=== PATIENT | female | born 1980 | race Caucasian/White ===

== ENCOUNTER 2024-08-21 09:06 | Emergency (ER) | payer BC, SELFPAY ==
[2024-08-21 09:10] VITALS: BP 138/90
[2024-08-21 09:20] VITALS: BMI 33.6
--- NOTE | 2024-08-21 09:31 | ED.GENMED ---
History of Present Illness
General
Chief Complaint: Rabies
Source: patient
Exam Limitations: none
Time Seen by Provider: 08/21/24 09:16
Nursing documentation reviewed up to this point in time: agreed with
History of Present Illness
History of Present Illness:
Patient is a 44 year old female presenting for evaluation of cat bite. 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 There was very minimal bleeding. She contacted her primary care
doctor who recommended she come to the emergency department for the rabies vaccine. Patient denies any significant pain in affected finger. She denies any numbness/tingling in affected finger. She was able to wash out bite with water prior to
arrival to the emergency department
Of note�patient states she did have a cat bite 2 years ago, in 2021, where she received the rabies immunoglobulin and the full 4 dose vaccination series. Her tetanus shot was updated at that time as well.
Past History
Past History
ED Past Medical History: None and Other (N/A)
ED Past Surgical History: None and Other (N/A)
Social History
Tobacco: Non-smoker
Personal:
Living: with family
Review of Systems
Review of Systems
Allergies reviewed?: Yes
All Other Systems: ROS reviewed and negative except as documented in HPI and ROS
Phy Exam
Physical Exam
Physical Exam:
Vitals: Patient's vital signs are stable. Afebrile
General: Patient is well appearing, no acute distress
Skin: 2 pinpoint puncture wounds on right second digit at lateral aspect of the PIP joint. No active bleeding.
Head: Normocephalic, atraumatic
Throat: Protecting airway
Neck: Normal ROM, no cervical spine tenderness
Cardiac: Regular rate
Pulm: No apparent respiratory distress
Abdomen: Nondistended
Extremities: 2 pinpoint puncture wounds to right second digit as described above. No bony tenderness in right second finger. Patient has full ability to flex and extend against resistance in right MCP, PIP, DIP joints. Sensation fully intact.
Capillary refill less than 2 seconds.
Neuro: Grossly intact
Psychiatric: Normal affect.
Course
Orders/Labs/Results
Orders:
Orders
08/21/24 09:34
MetroNIDAZOLE [Flagyl] 500 mg PO NOW STA
08/21/24 09:45
Rabies Vaccine (Pcec)/Pf [Rabavert Rabies Vacc W-Diluent] 2.5 unit IM .ONCE ONE
08/21/24 09:55
Cefuroxime Axetil [Ceftin] 500 mg PO NOW STA
Vital Signs
Initial and Last Documented VS:
Initial Vital Signs
Temp Pulse Resp BP Pulse Ox
98.2 F 80 18 138/90 100
08/21/24 09:10 08/21/24 09:10 08/21/24 09:10 08/21/24 09:10 08/21/24 09:10
Last Documented Vital Signs
Temp Pulse Resp BP Pulse Ox
98.2 F 80 18 138/90 100
08/21/24 09:10 08/21/24 09:10 08/21/24 09:10 08/21/24 09:10 08/21/24 09:10
MDM/Problems Addressed
Differential Diagnosis Includes:
Not limited to: Cat bite, etc.
MDM/Problems Addressed:
44-year-old female presenting after cat bite by feral cat while working at nursing home today. Wound is not actively bleeding. Patient is stable vital signs. She is afebrile. On exam�patient is well-appearing, no apparent distress. She does have a
pinpoint puncture wounds to her right index finger at lateral aspect of PIP joint. There is no bony tenderness. No evidence of tendon involvement. No evidence of flexor tenosynovitis. Sensation fully intact. Puncture wounds were irrigated
thoroughly with normal saline. Tetanus shot is up-to-date. Patient did have a complete rabies vaccination series including immunoglobulin 2 years ago. She will require rabies booster today given this cat Was likely unvaccinated. Patient received
first rabies vaccination today. She will require repeat vaccination in 2 days and was instructed to return to the emergency department. Will start patient on prophylactic course of Ceftin/Flagyl given amoxicillin allergy. Strict return
precautions discussed with patient including signs of infection. Case discussed with attending physician. Patient stable for discharge.
Chronic conditions affecting care:
N/A
Acute Exacerbation and/or Progression of Chronic Illness:
N/A
*Pulse Oximetry
Patient hypoxic: no
*EKG
Interpreted by ED Provider?: NA
*Block Sawyer Interpretation
Rate: Block Sawyer- N/A
*Critical Care Note
Total Time (30-74mins, 75-104mins- exclusive of procedures): Not Applicable
ED Attending Note
-
Portions of this chart may have been created with voice recognition software.� Occasional wrong word or��sound alike� substitutions may have occurred due to the inherent limitations of voice recognition software.
Discharge Plan
Departure
Patient Disposition: Home (Routine Discharge)
Date of Disposition: 08/21/24
Time of Disposition: 09:57
Patient with high blood pressure during this ER visit?: No
Condition: Good
Covid-19: Not Applicable
Discharge Problem:
Cat bite of index finger, Rabies, need for prophylactic vaccination against
Instructions: Animal Bites (DC), Rabies
Prescriptions:
New
cefuroxime axetil 500 mg tablet
500 mg PO BID 5 Days Qty: 10 0RF
metronidazole 500 mg tablet
500 mg PO TID 5 Days Qty: 15 0RF
No Action
desogestrel-ethinyl estradiol [Isibloom] 1 EACH tablet
1 ea PO DAILY
escitalopram oxalate 10 MG tablet
20 mg PO DAILY
Imovax Rabies Vaccine (PF) 1 ML recon soln
1 ml IM . NEEDED
Referrals:
Aileen Machuca MD [Family Provider] -
Stand Alone Forms: Rabies Vaccine Post Exp Dosing
Activity Restrictions/Additional Instructions:
RETURN TO THE EMERGENCY DEPARTMENT WITH ANY INJECTION SITE REACTIONS OR ANY SIGNS OF INFECTION INCLUDING FEVERS, REDNESS, SWELLING, PUS DRAINING FROM WOUND, RED STREAKING, OR ANY OTHER CONCERNS
-You received dose one of the rabies vaccine while in the emergency department today. You will need 1 additional dose on day #3, 08/24/2024. You will need to return to the emergency department for this vaccine.
-Your antibiotics resent to pharmacy. You were given your first dose in the emergency department today. You should take this cefuroxime twice a day for the next 5 days. You should take the metronidazole 3 times a day for the next 5 days. You
should avoid drinking any alcohol while taking metronidazole.
-Keep wound clean and dry. Monitor very closely for any signs of infection. Follow-up with your primary care as needed
Monitor your symptoms closely and return to the emergency department with any acute worsening/new symptoms or any signs of infection
Interventions
Interventions:
*Risk Screen - Suicide Last Done: 08/21/24 09:10
*General Assessment Last Done: 08/21/24 09:10
*Neglect/Abuse Screening Last Done: 08/21/24 09:10
ED- Fall Risk Assessment Last Done: 08/21/24 10:20
*ED COVID-19 Vaccine History Last Done: 08/21/24 09:10
*Nursing Disposition Last Done: 08/21/24 10:20
Discharge Date and Time
Discharge Date/Time: 08/21/24 10:21
Print Language: SOUTH AFRICAN
[2024-08-21] MEDS: CEFTIN 500 MG PO (10:04)
[2024-08-21] MEDS: FLAGYL 500 MG PO (10:04)
[2024-08-21] MEDS: RABAVERT RABIES VACC W-DILUENT 2.5 UNIT IM (10:05)
== END 2024-08-21 10:21 | disposition home or self-care (01) ==
LOC: EMR 09:06
PROVIDERS: EMERGENCY PHYSICIAN Student in an Organized Health Care Education/Training Program; FAMILY PHYSICIAN Family Medicine
DX: S61.230A Puncture wound without foreign body of right index finger without damage to nail, initial encounter (principal); W55.01XA Bitten by cat, initial encounter; Y99.0 Civilian activity done for income or pay; Z23 Encounter for immunization
CPT/HCPCS: 90471; 99282; 90675

== ENCOUNTER 2024-08-25 08:19 | Outpatient (RCR) | payer BC, SELFPAY ==
[2024-08-25 08:35] VITALS: BP 131/86
[2024-08-25] MEDS: RABAVERT RABIES VACC W-DILUENT 2.5 UNIT IM (08:49)
== END 2024-08-26 10:20 | disposition home or self-care (01) ==
LOC: OID 08:19
PROVIDERS: ATTENDING PHYSICIAN Student in an Organized Health Care Education/Training Program; FAMILY PHYSICIAN Family Medicine
DX: Z20.3 Contact with and (suspected) exposure to rabies (principal); Z23 Encounter for immunization
CPT/HCPCS: 90471; 90675

== ENCOUNTER → 2025-02-10 07:37 | Outpatient (REF) | payer BC, SELFPAY | LOC: HWWDC 07:37 | PROVIDERS: ATTENDING PHYSICIAN Family Medicine | DX: Z12.31 Encounter for screening mammogram for malignant neoplasm of breast (principal) | CPT/HCPCS: 77063; 77067 ==

== ENCOUNTER → 2025-02-26 08:58 | Outpatient (REF) | payer BC, SELFPAY | LOC: WDC 08:58 | PROVIDERS: ATTENDING PHYSICIAN Family Medicine | DX: R92.8 Other abnormal and inconclusive findings on diagnostic imaging of breast (principal) | CPT/HCPCS: 76642 ==

== ENCOUNTER 2025-06-15 21:18 | Observation (INO) | payer BC, SELFPAY ==
[2025-06-15 12:40] VITALS: BP 131/86
[2025-06-15 13:08] LABS: Hematocrit 41.9 % (37.0-47.0); Hemoglobin 13.7 g/dL (12.0-16.0); Mean Corp Hgb Conc. 32.7 g/dL (33.0-37.0); Mean Corpuscular Volume 92.9 fL (81.0-99.0); Nucleated Red Blood Cells % 0 %; Platelet Count 252 10^3/uL (130-400); Red Cell Dist. Width 12.5 % (11.5-14.5)
[2025-06-15 13:10] LABS: Urine Character Slightly Cloudy (Clear)
[2025-06-15 13:22] LABS: ALT (SGPT) 17 U/L (0-35); AST (SGOT) 20 U/L (14-36); Albumin 4.2 g/dl (3.5-5.0); Alkaline Phosphatase 82 U/L (38-126); Blood Urea Nitrogen 10 mg/dl (7-17); Calcium 9.0 mg/dl (8.4-10.2); Carbon Dioxide 22 mmol/L (22-30); Chloride 108 mmol/L (98-107); Glucose 95 mg/dl (70-99); Lipase 104 U/L (23-300); Potassium 4.5 mmol/L (3.5-5.1); Sodium 137 mmol/L (135-145); Total Protein 7.2 g/dl (6.3-8.2); eGFR > 60.00
[2025-06-15 13:40] LABS: Urine Urothelial Cell 0-2 /LPF (FEW)
[2025-06-15 13:41] LABS: HCG, Serum Qualitative Screen Negative
[2025-06-15 13:42] LABS: Urine White Cell 0-2 /HPF (0-5)
[2025-06-15] MEDS: NSS 1000 IV ×2 (14:56→22:35)
[2025-06-15] MEDS: TORADOL 15 MG IV (14:57)
[2025-06-15] MEDS: DILAUDID 0.5 MG IV ×2 (15:38→22:35)
--- NOTE | 2025-06-15 16:24 | ED.GENMED ---
History of Present Illness
<Tanvi Damon PA-C - Last Filed: 06/15/25 21:37>
General
Chief Complaint: Abdominal Pain
Source: patient
Exam Limitations: none
Time Seen by Provider: 06/15/25 14:31
Nursing documentation reviewed up to this point in time: agreed with
History of Present Illness
History of Present Illness:
Patient is a 45-year-old female who presents to the emergency department with abdominal pain. Patient states she woke with upper abdominal pain around 3 AM this morning. She describes it as a constant aching pain in her central abdomen which has
now seemed to migrate into the right lower quadrant. She has been nauseous however has not had any episodes of vomiting. She denies any fever or chills. No diarrhea or constipation. No dysuria or hematuria.
Patient states that she did eat breakfast this morning around 7:30 AM.
No history of abdominal surgeries. Her menstrual cycle ended yesterday.
Past History
<Tanvi Damon PA-C - Last Filed: 06/15/25 21:37>
Past History
ED Past Medical History: None and Other (N/A)
ED Past Surgical History: None and Other (N/A)
Social History
Tobacco: Non-smoker
Personal:
Living: with family
Review of Systems
<Tanvi Damon PA-C - Last Filed: 06/15/25 21:37>
Review of Systems
Allergies reviewed?: Yes
All Other Systems: ROS reviewed and negative except as documented in HPI and ROS
Phy Exam
<Tanvi Damon PA-C - Last Filed: 06/15/25 21:37>
Physical Exam
Physical Exam:
Vitals: Patient's vital signs are stable. Afebrile
General: Patient is well appearing, no acute distress. Nontoxic appearing
Skin: Warm and dry, no rashes or lesions
Head: Normocephalic, atraumatic
Eyes: Sclera nonicteric.
Throat: Protecting airway
Neck: Normal ROM, no cervical spine tenderness, no meningismus
Cardiac: Regular rate and rhythm, no murmurs.
Pulm: Normal respiratory effort, no wheezes, rales, rhonchi heard on exam
Abdomen: Abdomen soft. Moderate tenderness in right lower quadrant McBurney's point. No rebound tenderness or guarding. Positive Rovsing sign.
Extremities: No evidence of cyanosis or edema
Neuro: AAOx3. No focal deficits.
Psychiatric: Normal affect.
Course
<Tanvi Damon PA-C - Last Filed: 06/15/25 21:37>
Orders/Labs/Results
Orders:
Orders
06/15/25 12:42
Test Result ONCE
06/15/25 12:46
Complete Blood Count/With Diff Urgent
Comprehensive Metabolic Panel Urgent
HCG, Serum Qualitative Screen Urgent
Lipase Urgent
06/15/25 12:49
Urine Microscopic Reflex Cult Urgent
Urine Reflex Culture from UA [Urinalysis Reflex To Culture] Urgent
Date Specimen was Collected: 06/15/25
Time Specimen was Collected: 12:42
Urine Culture Urgent
TAYA Source: U
Specimen Description:
Date Specimen was Collected: 06/15/25
Time Specimen was Collected: 12:42
06/15/25 14:41
0.9% Sodium Chloride 1000 ml [Nss] 1,000 ml IV BOLUS
Ketorolac [Toradol] 15 mg IV NOW STA
06/15/25 14:42
CT Abd/pelvis W Iv Cont Urgent
Comment:
Reason For Exam: RLQ pain
06/15/25 15:33
HYDROmorphone [Dilaudid] 0.5 mg IV NOW STA
06/15/25 16:24
Piperacillin/Tazo 3.375 Gram [Zosyn] 3.375 gram in 50 ml IV NOW
06/15/25 20:55
Admit/Transfer Patient As Directed
Co-Sign Provider:
Level of Care: Observation services
Assign to:: Medical/Surgical
Physician / Group: Dr. Daley/ Surgical
Diagnosis: uncomplicated appendicitis
06/15/25 20:56
PRN Pain Medication Management As Directed
May give lesser potent ordered pain med per pt: Yes
preference::
Protocol:: Medication orders for pain may be administered in a
manner that supports deferring to patient preference
when the pt is:
- Requesting an ordered lesser potent pain medication.
Least to most potent pain medications are defined
as: acetaminophen < NSAID < tramadol < opioids
(morphine, oxycodone, hydromorphone).
- Requesting a lesser dose of the same medication IF
ORDERED.
- Requesting a less intrusive route of administration
if both routes are prescribed by the provider (PO <
IV).
06/15/25 20:57
Code Status As Directed
Resuscitation Status: Full Code
Abnormal Lab Results
06/15/25 06/15/25
12:46 12:49
WBC 15.7 H 10^3/uL
(4.8-10.8)
MCHC 32.7 L g/dL
(33.0-37.0)
MPV 10.8 H fL
(7.4-10.4)
Abs Immat Gran (auto) 0.1 H 10^3/uL
(0-0.05)
Absolute Neuts (auto) 13.1 H 10^3/uL
(1.4-6.5)
Absolute Monos (auto) 1.0 H 10^3/uL
(0.1-0.6)
Neutrophils % 83.3 H %
(42.2-75.2)
Lymphocytes % 9.3 L %
(20.5-51.1)
Chloride 108 H mmol/L
(98-107)
Urine Ketones 3+ A
(Negative)
Ur Occult Blood Reflex 4+ A
(Negative)
Urine RBC 7-10 A /HPF
(0-2)
Urine Bacteria (Reflex) Moderate A
(Negative)
Urine Albumin (Reflex) 2+ A
(Neg - Trace)
06/15/25 12:46
06/15/25 12:46
Vital Signs
Initial and Last Documented VS:
Initial Vital Signs
Temp Pulse Resp BP Pulse Ox
97.9 F 93 20 131/86 99
06/15/25 12:40 06/15/25 12:40 06/15/25 12:40 06/15/25 12:40 06/15/25 12:40
Last Documented Vital Signs
Temp Pulse Resp BP Pulse Ox
97.9 F 93 20 131/86 99
06/15/25 12:40 06/15/25 12:40 06/15/25 12:40 06/15/25 12:40 06/15/25 16:25
Aminatalt;Nicholas Gonzales, DO - Last Filed: 06/15/25 17:15>
Orders/Labs/Results
Orders:
Orders
06/15/25 12:42
Test Result ONCE
06/15/25 12:46
Complete Blood Count/With Diff Urgent
Comprehensive Metabolic Panel Urgent
HCG, Serum Qualitative Screen Urgent
Lipase Urgent
06/15/25 12:49
Urine Microscopic Reflex Cult Urgent
Urine Reflex Culture from UA [Urinalysis Reflex To Culture] Urgent
Date Specimen was Collected: 06/15/25
Time Specimen was Collected: 12:42
Urine Culture Urgent
TAYA Source: U
Specimen Description:
Date Specimen was Collected: 06/15/25
Time Specimen was Collected: 12:42
06/15/25 14:41
0.9% Sodium Chloride 1000 ml [Nss] 1,000 ml IV BOLUS
Ketorolac [Toradol] 15 mg IV NOW STA
06/15/25 14:42
CT Abd/pelvis W Iv Cont Urgent
Comment:
Reason For Exam: RLQ pain
06/15/25 15:33
HYDROmorphone [Dilaudid] 0.5 mg IV NOW STA
06/15/25 16:24
Piperacillin/Tazo 3.375 Gram [Zosyn] 3.375 gram in 50 ml IV NOW
06/15/25 20:55
Admit/Transfer Patient As Directed
Co-Sign Provider:
Level of Care: Observation services
Assign to:: Medical/Surgical
Physician / Group: Dr. Daley/ Surgical
Diagnosis: uncomplicated appendicitis
06/15/25 20:56
PRN Pain Medication Management As Directed
May give lesser potent ordered pain med per pt: Yes
preference::
Protocol:: Medication orders for pain may be administered in a
manner that supports deferring to patient preference
when the pt is:
- Requesting an ordered lesser potent pain medication.
Least to most potent pain medications are defined
as: acetaminophen < NSAID < tramadol < opioids
(morphine, oxycodone, hydromorphone).
- Requesting a lesser dose of the same medication IF
ORDERED.
- Requesting a less intrusive route of administration
if both routes are prescribed by the provider (PO <
IV).
06/15/25 20:57
Code Status As Directed
Resuscitation Status: Full Code
Abnormal Lab Results
06/15/25 06/15/25
12:46 12:49
WBC 15.7 H 10^3/uL
(4.8-10.8)
MCHC 32.7 L g/dL
(33.0-37.0)
MPV 10.8 H fL
(7.4-10.4)
Abs Immat Gran (auto) 0.1 H 10^3/uL
(0-0.05)
Absolute Neuts (auto) 13.1 H 10^3/uL
(1.4-6.5)
Absolute Monos (auto) 1.0 H 10^3/uL
(0.1-0.6)
Neutrophils % 83.3 H %
(42.2-75.2)
Lymphocytes % 9.3 L %
(20.5-51.1)
Chloride 108 H mmol/L
(98-107)
Urine Ketones 3+ A
(Negative)
Ur Occult Blood Reflex 4+ A
(Negative)
Urine RBC 7-10 A /HPF
(0-2)
Urine Bacteria (Reflex) Moderate A
(Negative)
Urine Albumin (Reflex) 2+ A
(Neg - Trace)
06/15/25 12:46
06/15/25 12:46
Vital Signs
Initial and Last Documented VS:
Initial Vital Signs
Temp Pulse Resp BP Pulse Ox
97.9 F 93 20 131/86 99
06/15/25 12:40 06/15/25 12:40 06/15/25 12:40 06/15/25 12:40 06/15/25 12:40
Last Documented Vital Signs
Temp Pulse Resp BP Pulse Ox
97.9 F 93 20 131/86 99
06/15/25 12:40 06/15/25 12:40 06/15/25 12:40 06/15/25 12:40 06/15/25 16:25
<Tanvi Damon PA-C - Last Filed: 06/15/25 21:37>
MDM/Problems Addressed
Differential Diagnosis Includes:
Not limited to: Appendicitis, mesenteric adenitis, gastroenteritis, ovarian cyst/torsion, diverticulitis, etc.
MDM/Problems Addressed:
45 year old female with uncomplicated acute appendicitis. Symptoms began early this morning. She is afebrile with normal vital signs. On exam, patient well appearing with focal tenderness in RLQ without rebound tenderness or guarding.
Cardio/pulmonary assessment unremarkable. Basic labs reveal leukocytosis with left shift. Chemistry unremarkable. UA with few RBCs however no acute infection. CT shows mild acute appendicitis without evidence of abscess or perforation.
Zosyn started in ED - she tolerated well. Patient given IVF and pain medication - appears well and comfortable. Discussed with Dr. Daley - plan to admit to general surgery service with plan for NPO and OR tomorrow. Patient accepted to general
surgery service in stable condition.
Chronic conditions affecting care:
N/A
Acute Exacerbation and/or Progression of Chronic Illness:
N/A
<Tanvi Damon PA-C - Last Filed: 06/15/25 21:37>
*Radiology
Radiology exam reviewed: radiology read reviewed
*Pulse Oximetry
SaO2: 99
Oxygen Mode of Delivery: Room air
Patient hypoxic: no
*EKG
Interpreted by ED Provider?: NA
*Chorus Master Interpretation
Rate: Chorus Master- N/A
*Critical Care Note
Total Time (30-74mins, 75-104mins- exclusive of procedures): Not Applicable
<Tanvi Damon PA-C - Last Filed: 06/15/25 21:37>
Patient Management
Discussion with other providers: Delinquent Account Clerk (Case discussed with general surgery)
ED Attending Note
<Tanvi Damon PA-C - Last Filed: 06/15/25 21:37>
-
Portions of this chart may have been created with voice recognition software.� Occasional wrong word or��sound alike� substitutions may have occurred due to the inherent limitations of voice recognition software.
<Nicholas Gonzales, DO - Last Filed: 06/15/25 17:15>
ED Attending Note
Patient seen and examined by attending physician: Yes
ED Attending Note:
I have reviewed and agree with history and treatment plan by Tanvi Damon PA-C. My exam revealed
45-year-old female in no acute distress. Patient feels comfortable after receiving Dilaudid. Tolerated Zosyn. Dr. Daley, general surgeon aware and will take the OR in a.m.
Discharge Plan
Departure
Patient Disposition: Admit
Date of Disposition: 06/15/25
Time of Disposition: 17:09
Admit to doctor: Dr. Daley
Presentation/result/management discussed w/ accepting MD/DO: General Surgery
Discharge Problem:
Acute appendicitis
Interventions
Interventions:
*Risk Screen - Suicide Last Done: 06/15/25 18:30
*General Assessment Last Done: 06/15/25 12:40
*Neglect/Abuse Screening Last Done: 06/15/25 18:30
*ED- Fall Risk Assessment Last Done: 06/15/25 21:35
*ED COVID-19 Vaccine History Last Done: 06/15/25 18:29
*ED Influenza Vaccine History Last Done: 06/15/25 18:29
*Nursing Disposition Last Done: 06/15/25 21:35
[place]-Wabtyj-Zmatqswotp Assessment Last Done: 06/15/25 18:29
[2025-06-15] MEDS: ZOSYN 50 IV ×2 (16:32→22:35)
--- NOTE | 2025-06-15 20:55 | HPS.HSE ---
Addendum entered and electronically signed by Eliseo Howard MD 06/16/25 07:31:
Patient seen and examined.
Patient is a 45 yo F with a PMH of obesity and depression/anxiety who presents with 24 hours of RLQ abdominal pain. Symptoms began acutely yesterday (06/15). Pain more central in the upper pelvis but has localized to the RLQ. Mild associated
nausea, no emesis, fevers or chills. Looser, non-bloody stools. No urinary symptoms. No chronic GI issues. Family history unremarkable. No prior colonoscopy.
Gen: NAD
Abd: soft, mild tenderness in RLQ, ND (obese limiting exam), non-peritoneal
Labs and CT scan imaging were reviewed.
Patient is a 45 yo F p/w likely acute appendicitis
Ct scan imaging demonstrates an elongated and mildly dilated appendix. Appears to have a calcification within the cecum. History and exam are consistent with appendicitis. The natural history and pathophysiology of appendicitis was reviewed. Ct
scan imaging was reviewed. Options for management including medical management with antibiotics versus surgical management with appendectomy were considered and discussed. The pros and cons of both approaches was discussed. Specifically, we
discussed failure of medical management and future episodes of appendicitis versus surgical risks.
Plan for a laparoscopic appendectomy. The procedure itself, as well as the risks, benefits, and alternatives was discussed. Specifically, we discussed the risks of bleeding, infection, injury to surrounding structures, staple like leak and need
for open operation. Typical [id number] recovery was discussed. All questions answered. Consent signed.
-- Laparoscopic appendectomy
-- NPO, IVF
-- Abx: Zosyn
-- Pain control: Tylenol and IV Dilaudid PRN
Original Note:
Family Physician
-
Family Physician: Aileen Machuca MD
Chief Complaint
-
Abdominal pain
History of Present Illness
a 45 years old female with PMH of depression, present to ER with a complaint of abdominal pain that started around 3 am. Pain started mid of abdomen then localized to the RLQ described as aching. Associated with nausea, denies vomiting. Denies
urinary symptoms, chilis, fever, diarrhea constipation or any other symptoms. Denies similar episodes of pain in the past. No history of surgeries.
Medical History
Past Medical History
Past Medical History: Reports Psychiatric (Depression )
Past Surgical History: Reports None
Social History
Tobacco: Non-smoker
Alcohol: Occasional
Drug: None
Personal:
Living: With Family
Employment: Other
Family History
Family History: Not pertinent
Allergies / Home Medications
Allergies reflects when Allergies were last updated in [facility].
Home Medications with original date entered in [facility]
Allergy/Medication List:
Patient Allergies
Allergy/AdvReac Type Severity Reaction Status Date / Time
amoxicillin Allergy Unknown Rash Verified 06/15/25 12:40
Home Medications Table - record
�Medication �Instructions �Recorded �Confirmed
desogestrel 0.15 mg-ethinyl 1 tab PO DAILY 02/28/22 06/15/25
estradiol 0.03 mg tablet (Isibloom)
cholecalciferol (vitamin D3) 50 50 mcg PO DAILY 08/25/24 06/15/25
mcg (2,000 unit) tablet (Vitamin
D3)
magnesium citrate 100 mg capsule 100 mg PO DAILY 08/25/24 06/15/25
Lactobac no.2-Bifidobac no.1-S. 1 cap PO DAILY 06/15/25 06/15/25
thermo 112.5 billion cell capsule
(Visbiome)
cetirizine 10 mg tablet (Zyrtec) 10 mg PO DAILY 06/15/25 06/15/25
escitalopram oxalate 20 mg tablet 20 mg PO DAILY 06/15/25 06/15/25
(Lexapro)
ibuprofen 200 mg tablet (Advil) 400 mg PO Q8HPRN PRN mild pain 06/15/25 06/15/25
Review of Systems
-
History Source: Patient
A 12 point ROS was completed and negative except as noted: Yes
Constitutional: Reports No Symptoms
EENT: Reports No Symptoms
Respiratory: Reports No Symptoms
Cardiac: Reports No Symptoms
Abdomen/GI: Reports Abdominal Pain (RLQ ) and Nausea
: Reports No Symptoms
Musculoskeletal: Reports No Symptoms
Physical Exam
Vital Signs
Vital Signs
Temp Pulse Resp BP Pulse Ox
97.9 F 93 20 131/86 99
06/15/25 12:40 06/15/25 12:40 06/15/25 12:40 06/15/25 12:40 06/15/25 16:25
Physical Exam
General: No Apparent Distress
Respiratory: Clear
Cardiac: Regular Rhythm
GI: Soft, Non Distended, Normal Bowel Sounds and Tender (RLQ )
Musculoskeletal: No Edema
Neuro: Awake and AO x 3
Psych: Calm and Intact Judgment/Insight
Laboratory Results
-
06/15/25 12:46
06/15/25 12:46
Laboratory Results
Total Bilirubin 1.0 mg/dl (0.2-1.3) 06/15/25 12:46
AST 20 U/L (14-36) 06/15/25 12:46
ALT 17 U/L (0-35) 06/15/25 12:46
Alkaline Phosphatase 82 U/L (38-126) 06/15/25 12:46
Lipase 104 U/L (23-300) 06/15/25 12:46
Data Reviewed
-
CT Scan: Discussed with Patient
Lab Data: Discussed with Patient
Impression/Plan
-
CT of abdomen/Plvis shows
-Mild acute appendicitis . No evidence of perforation or abscess formation. Clinical correlation recommended.
-Mild hepatomegaly
Hepatic cyst.
-WBC 15.7
IMPRESSION:
acute appendicitis
PLAN:
Admit/observation /med-surg (dr. Daley/ Surgical services)
NPO
IVF
Zosyn
antiemetics as needed
analgesics as needed
Depression
On Lexapro
DVT prophylaxis Lovenox
Code status Full code
[2025-06-15 21:38] VITALS: BP 127/82
[2025-06-15 22:45] VITALS: BMI 34.3
[2025-06-15 22:48] VITALS: BP 160/95
[2025-06-15] MEDS: TYLENOL 650 MG PO (22:50)
[2025-06-15] MEDS: COMPAZINE 5 MG IV (22:51)
[2025-06-16] VITALS (8 sets, daily range): BP systolic 95–131; BP diastolic 54–82
[2025-06-16] MEDS: ZOSYN 50 IV ×3 (03:36→16:12)
--- NOTE | 2025-06-16 07:31 | W.SUR.PREOP ---
Pre-Operative Surgical Note
-
I have examined this patient prior to the performance of the scheduled procedure.
The patient's condition is unchanged from the time of the current History and
Physical and the patient is able to undergo the scheduled procedure.
[2025-06-16] MEDS: LEXAPRO 20 MG PO (08:44)
[2025-06-16] MEDS: VISBIOME 1 CAP PO (08:45)
--- NOTE | 2025-06-16 10:39 | CM ---
Addendum entered by Joselo Ramirez 06/16/25 10:41:
Patient admitted under observation services. OOBS form verbally reviewed, copy provided, copy on chart
Original Note:
Patient seen bedside, initial assessment completed. Patient is a 45 yo F with a PMH of obesity and depression/anxiety who presents with 24 hours of RLQ abdominal pain. Plan for a laparoscopic appendectomy this admission. Patient hopeful to have
procedure today around noon.
Patient resides w/ mother in a 2S, 3 steps to enter from the outside. Patient is independent in all areas. No therapy hx reported.
Address, point of contact and insurance verified
PCP: Aileen Machuca
Pharmacy: [facility]
Plan: Anticipating home, no needs
[2025-06-16] MEDS: NSS IV (14:03)
--- NOTE | 2025-06-16 14:41 | W.IMMPOSTOP ---
Surgical Immed Post Op Note
-
Primary Surgeon: Anita
Assisting Surgeon: None
Pre-op Diagnosis: Acute appendicitis
Post-op Diagnosis: Acute appendicitis
Procedure Performed: Laparoscopic appendectomy
Anesthesia Type: General
Specimen / Cultures:
1. Appendix
Estimated Blood Loss: 3 cc
Complications: None
Operative Findings:
1. Mild acute appendicitis, hemorrhagic reactive fluid
2. Mesentery taken with Ligasure, base with robles load stapler
== END 2025-06-16 17:36 | disposition home or self-care (01) ==
LOC: 4 WEST ACU 21:18
PROVIDERS: Student in an Organized Health Care Education/Training Program; ADMITTING PHYSICIAN Surgery; EMERGENCY PHYSICIAN Emergency Medicine; FAMILY PHYSICIAN Family Medicine
DX: K35.890 Other acute appendicitis without perforation or gangrene (principal); F32.A Depression, unspecified; K76.89 Other specified diseases of liver; E66.9 Obesity, unspecified; Z68.34 Body mass index [BMI] 34.0-34.9, adult; Z79.899 Other long term (current) drug therapy
CPT/HCPCS: 44970; 74177; 80053; 81003; 81015; 83690; 84703; 85025; 87086; 88304; 93005; 99285; G0378; Q9967

== ENCOUNTER → 2025-08-26 10:54 | Outpatient (REF) | payer BC, SELFPAY | LOC: WDC 10:54 | PROVIDERS: ATTENDING PHYSICIAN Family Medicine | DX: R92.8 Other abnormal and inconclusive findings on diagnostic imaging of breast (principal) | CPT/HCPCS: 77061; 77065 ==

== ENCOUNTER → 2025-09-07 08:59 | Outpatient (REF) | payer BC, SELFPAY | LOC: WDC 08:59 | PROVIDERS: ATTENDING PHYSICIAN Family Medicine | DX: R92.8 Other abnormal and inconclusive findings on diagnostic imaging of breast (principal) | CPT/HCPCS: 76642 ==